=== PATIENT | female | born 1965 | race Caucasian/White ===

== ENCOUNTER 2017-08-31 08:14 | Inpatient (IN) | payer SELFPAY ==
[2017-08-31] MEDS ORDERED: IOHEXOL 350 MG/ML 10 ML VIAL (for RAD DIAG) IVCONTRAST ONE (08:15)
[2017-08-31 08:16] VITALS: BP 121/87; PULSE 80; RESP 15; TEMP 97.8; O2SAT 99
--- NOTE | 2017-08-31 08:30 | PD ---
HPI Chief Complaint: Medical Clearance Time Seen by Provider: 08:26 Travel History International Travel<30 days: No Contact w/Intl Traveler<30days: No Traveled to known affect area: No History of Present Illness HPI PATIENT STATES 2 DAYS OF SORETHROAT SO BADLY THAT SHE STARTED TAKING ASPIRIN AND TYLENOL "ABSENT MINDEDLY" (SHE HAS TAKEN 60 TYLENOL OVER LAST 2 DAYS, SHE INSISTS THAT SHE'S NOT TRYING TO HURT HERSELF) TODAY SHE WOKE UP AND HAD SOME NAUSEA AND ABDOMINAL DISCOMFORT AT [facility].....THROAT RATED 9/10, SHARP, WORSE WITH SWALLOWING PFSH Social History Tobacco Use: Yes Allergies-Medications (Allergen,Severity, Reaction): Coded Allergies: Opioids - Morphine Analogues (Verified Allergy, Unknown, TONGUE SWELLING, 08/31/17) Penicillins (Verified Allergy, Unknown, UNKNOWN - HAPPENED DURING CHILDHOOD, 08/31/17) Reported Meds & Prescriptions Reported Meds & Active Scripts Active Reported Aleve (Naproxen Sodium) 220 Mg Capsule 1 Tab PO DAILY PRN Aspirin 325 Mg Tab 325 Mg PO DAILY Tylenol Extra Strength (Acetaminophen) 500 Mg Tablet 2-3 Tab PO Q4HR PRN Review of Systems Except as stated in HPI: all other systems reviewed are Neg General / Constitutional: Positive: Fever HENT: Positive: Sore Throat Physical Exam Narrative GENERAL: SKIN: Warm and dry. HEAD: Atraumatic. Normocephalic. EYES: Pupils equal and round. No scleral icterus. No injection or drainage. ENT: No nasal bleeding or discharge. Mucous membranes pink and moist. EDEMA TO LEFT PERITONSILLAR REGION , TOLERATING OWN SECRETIONS, ANTERIOR CERVICAL LAD , NECK: Trachea midline. No JVD. CARDIOVASCULAR: Regular rate and rhythm. RESPIRATORY: No accessory muscle use. Clear to auscultation. Breath sounds equal bilaterally. GASTROINTESTINAL: Abdomen soft, non-tender, nondistended. MUSCULOSKELETAL: Extremities without clubbing, cyanosis, or edema. No obvious deformities. NEUROLOGICAL: Awake and alert. No obvious cranial nerve deficits. Motor grossly within normal limits. Five out of 5 muscle strength in the arms and legs. Normal speech. PSYCHIATRIC: Appropriate mood and affect; insight and judgment normal. Data Data Last Documented VS Vital Signs Date Time Temp Pulse Resp B/P (MAP) Pulse Ox O2 Delivery O2 Flow Rate FiO2 08/31/17 08:34 98.7 80 18 124/74 (91) 97 Orders Orders Complete Blood Count With Diff (08/31/17 08:26) Comprehensive Metabolic Panel (08/31/17 08:26) Prothrombin Time / Inr (Pt) (08/31/17 08:26) Act Partial Throm Time (Ptt) (08/31/17 08:26) Lipase (08/31/17 08:26) Thyroid Stimulating Hormone (08/31/17 08:26) Ct Abd/Pel W/O Iv Contrast (08/31/17 08:26) Drug Screen, Random Urine (08/31/17 08:26) Alcohol (Ethanol) (08/31/17 08:26) Salicylates (Aspirin) (08/31/17 08:26) Tylenol (Acetaminophen) (08/31/17 08:26) Ct Soft Tiss Neck W Iv Cont (08/31/17 ) Clindamycin Inj (Cleocin Inj) (08/31/17 10:00) Iohexol 350 Inj (Omnipaque 350 Inj) (08/31/17 08:15) Comprehensive Metabolic Panel (09/01/17 06:00) Free Thyroxine (T4) (09/01/17 06:00) Hemoglobin (Hgb) A1c (09/01/17 06:00) Magnesium (Mg) (09/01/17 06:00) Phosphorus (Po4) (09/01/17 06:00) Thyroid Stimulating Hormone (09/01/17 06:00) Complete Blood Count With Diff (09/01/17 06:00) Dexamethasone Inj (Decadron Inj) (08/31/17 12:00) Admit Order (Ed Use Only) (08/31/17 11:58) Consult Ent (08/31/17 ) Labs Laboratory Tests Test 08/31/17 08:45 08/31/17 09:15 White Blood Count 12.2 TH/MM3 Red Blood Count 4.40 MIL/MM3 Hemoglobin 13.6 GM/DL Hematocrit 39.8 % Mean Corpuscular Volume 90.5 FL Mean Corpuscular Hemoglobin 30.9 PG Mean Corpuscular Hemoglobin Concent 34.1 % Red Cell Distribution Width 12.8 % Platelet Count 162 TH/MM3 Mean Platelet Volume 10.0 FL Neutrophils (%) (Auto) 74.9 % Lymphocytes (%) (Auto) 14.0 % Monocytes (%) (Auto) 8.5 % Eosinophils (%) (Auto) 1.8 % Basophils (%) (Auto) 0.8 % Neutrophils # (Auto) 9.1 TH/MM3 Lymphocytes # (Auto) 1.7 TH/MM3 Monocytes # (Auto) 1.0 TH/MM3 Eosinophils # (Auto) 0.2 TH/MM3 Basophils # (Auto) 0.1 TH/MM3 CBC Comment DIFF FINAL Differential Comment Prothrombin Time 10.8 SEC Prothromb Time International Ratio 1.0 RATIO Activated Partial Thromboplast Time 30.6 SEC Blood Urea Nitrogen 10 MG/DL Creatinine 0.49 MG/DL Random Glucose 103 MG/DL Total Protein 7.4 GM/DL Albumin 3.3 GM/DL Calcium Level 9.2 MG/DL Alkaline Phosphatase 82 U/L Aspartate Amino Transf (AST/SGOT) 26 U/L Alanine Aminotransferase (ALT/SGPT) 26 U/L Total Bilirubin 1.1 MG/DL Sodium Level 135 MEQ/L Potassium Level 4.5 MEQ/L Chloride Level 104 MEQ/L Carbon Dioxide Level 24.2 MEQ/L Anion Gap 7 MEQ/L Estimat Glomerular Filtration Rate 132 ML/MIN Lipase 188 U/L Thyroid Stimulating Hormone 3rd Gen 0.592 uIU/ML Salicylates Level LESS THAN 1.7 MG/DL Acetaminophen Level 20.4 MCG/ML Ethyl Alcohol Level LESS THAN 3 MG/DL Urine Opiates Screen NEG Urine Barbiturates Screen NEG Urine Amphetamines Screen POS Urine Benzodiazepines Screen NEG Urine Cocaine Screen NEG Urine Cannabinoids Screen POS MDM Medical Decision Making Medical Screen Exam Complete: Yes Emergency Medical Condition: Yes Medical Record Reviewed: Yes Differential Diagnosis PERITONSILLAR ABSCESS V ELECTROLYTE ABNL V SALICYLATE V TYLENOL OVERDOSE Narrative Course tylenol level elevated but nontoxic, however should have serial tylenol's to ensure that no toxicity levels are reach. ct neck showed peritonsillar swelling abscess vs mass per radiologiy, will admit for further evaluation. ent already consulted and patient was treated with steroids and iv abx samuel during initial evaluation Diagnosis Primary Impression: peritonsillar edema (abscess vs malignancy) Additional Impression: unintentional tylenol ingestion Scripts Lactobacillus Acidophilus (Lactobacillus Acidophilus) 1 Pkt 1 PKT PO TID for Nutritional Supplement, #36 PKT 0 Refills Prov: Tomas Graham MD 10/3/17 Clindamycin (Clindamycin) 300 Mg Cap 600 MG PO Q8H for Infection, #35 CAP 0 Refills Prov: Tomas Graham MD 09/02/17 Prednisone (21) 10 mg tab Dose Pack (Prednisone (21) 10 mg tab Dose Pack) 10 Mg Pack 10 MG PO DIRECTED for Inflammation, #1 DSPK 0 Refills Prov: Tomas Graham MD 09/02/17 Marky Messer MD Aug 31, 2017 08:30
[2017-08-31 08:34] VITALS: BP 124/74; PULSE 20; PULSE 80; RESP 18; TEMP 98.7; O2SAT 97
[2017-08-31] MEDS ORDERED: ASPI325T PO (08:42)
[2017-08-31] MEDS ORDERED: ACET-822 PO (08:42)
[2017-08-31] MEDS ORDERED: NAPR220C22 PO (08:43)
[2017-08-31 09:00] LABS: AUTOMATED NEUTROPHIL # 9.1 TH/MM3 (1.8-7.7); BASOPHIL # 0.1 TH/MM3 (0-0.2); BASOPHIL % 0.8 % (0.0-2.0); EOSINOPHIL # 0.2 TH/MM3 (0-0.4); EOSINOPHIL % 1.8 % (0.0-4.0); HEMATOCRIT 39.8 % (35.0-46.0); HEMO FLAGS DIFF FINAL; LYMPHOCYTE # 1.7 TH/MM3 (1.0-4.8); MEAN CELL VOLUME 90.5 FL (80.0-100.0); MEAN CORPUSCULAR HEMOGLOBIN 30.9 PG (27.0-34.0); MEAN CORPUSCULAR HGB CONC 34.1 % (32.0-36.0); MONO % 8.5 % (0.0-8.0); NEUT % 74.9 % (16.0-70.0); PLATELET COUNT 162 TH/MM3 (150-450); RED CELL DISTRIBUTION WIDTH 12.8 % (11.6-17.2); WHITE BLOOD COUNT 12.2 TH/MM3 (4.0-11.0)
[2017-08-31 09:10] LABS: PROTHROMBIN TIME - PATIENT 10.8 SEC (9.8-11.6)
[2017-08-31 09:11] LABS: APTT (PATIENT) 30.6 SEC (24.3-30.1)
[2017-08-31 09:19] LABS: ANION GAP 7 MEQ/L (5-15); AST (GOT) 26 U/L (15-37); BICARBONATE 24.2 MEQ/L (21.0-32.0); BLOOD UREA NITROGEN 10 MG/DL (7-18); CHLORIDE 104 MEQ/L (98-107); GLOMERULAR FILTRATION RATE 132 ML/MIN (>89); POTASSIUM 4.5 MEQ/L (3.5-5.1); SODIUM (NA) 135 MEQ/L (136-145)
[2017-08-31 09:28] LABS: ACETAMINOPHEN 20.4 MCG/ML (10.0-30.0); ALKALINE PHOSPHATASE 82 U/L (45-117); ALT (GPT) 26 U/L (10-53); TOTAL BILIRUBIN ADULT 1.1 MG/DL (0.2-1.0)
[2017-08-31 09:32] LABS: ALCOHOL LESS THAN 3 MG/DL (0-5)
--- NOTE | 2017-08-31 09:38 | RADRPT ---
EXAM DATE/TIME: 08/31/2017 08:44 [facility] COMPARISON: No previous studies available for comparison. INDICATIONS : Upper abdomen pain and vomiting today. ORAL CONTRAST: No oral contrast ingested. RADIATION DOSE: 9.96 CTDIvol (mGy) MEDICAL HISTORY : None SURGICAL HISTORY : None. ENCOUNTER: Initial ACUITY: 1 day PAIN SCALE: 3/10 LOCATION: Bilateral upper quadrant TECHNIQUE: Volumetric scanning of the abdomen and pelvis was performed. Using automated exposure control and adjustment of the mA and/or kV according to patient size, radiation dose was kept as low as reasonably achievable to obtain optimal diagnostic quality images. DICOM format image data is av ailable electronically for review and comparison. FINDINGS: LOWER LUNGS: The visualized lower lungs are clear. LIVER: Homogeneous density without lesion. There is no dilation of the biliary tree. The gallbla dder is greatly distended and there is layering high density material identified within the dependent portion of the gallbladder. SPLEEN: Normal size without lesion. PANCREAS: Within normal limits. KIDNEYS: Normal in size and shape. There is no mass, stone, or hydronephrosis. ADRENAL GLANDS: Within normal limits. VASCULAR: Scattered atherosclerosis. No evidence of aneurysm. BOWEL/MESENTERY: The stomach, small bowel, and colon demonstrate no acute abnormality. There is no free intraperitoneal air or fluid. ABDOMINAL WALL: Within normal limits. RETROPERITONEUM: There is no lymphadenopathy. BLADDER: No wall thickening or mass. REPRODUCTIVE: Multiple calcifications identified within the myometrium which appears diffusely no dular consistent with multiple calcified uterine fibroids. INGUINAL: There is no lymphadenopathy or hernia. MUSCULOSKELETAL: Within normal limits for patient age. CONCLUSION: #1. The gallbladder is greatly distended and there is layering high density material identified withi n the dependent portion of the gallbladder. Recommend further evaluation with right upper quadrant ul trasound for possible acute cholecystitis. #2. No evidence of bowel obstruction or inflammatory process within the abdomen and pelvis. #3. Multiple calcified uterine fibroids. Yesy Read MD on August 31, 2017 at 9:34 Board Certified Radiologist. This report was verified electronically.
[2017-08-31] MEDS ORDERED: CLINDAMYCIN INJ 900 MG in SODIUM CHLORIDE 0.9% INJ 100 ML IV ONE (10:00)
--- NOTE | 2017-08-31 10:22 | RADRPT ---
EXAM DATE/TIME: 08/31/2017 09:49 [facility] COMPARISON: No previous studies available for comparison. INDICATIONS : Peritonsillar abscess left. IV CONTRAST: 75 cc Omnipaque 350 (iohexol) IV RADIATION DOSE: 13.44 CTDIvol (mGy) MEDICAL HISTORY : adrenal cancer SURGICAL HISTORY : right jaw and cheek surgery ENCOUNTER: Initial ACUITY: 1 day PAIN SCALE: 5/10 LOCATION: Left neck TECHNIQUE: Volumetric scanning of the neck was performed. Using automated exposure control and adjustment of th e mA and/or kV according to patient size, radiation dose was kept as low as reasonably achievable to obtain optimal diagnostic quality images. DICOM format image data is available electronically for r eview and comparison. FINDINGS: NASOPHARYNX: The nasopharyngeal airway has a normal configuration. No mucosal thickening or mass is seen. OROPHARYNX: There is asymmetry of the tonsillar pillars with significant enlargement of the left tonsil measuring approximately 3.2 x 3.2 x 8 cm craniocaudally. There is a central low attenuation with a thin rim of enhancement seen on series 2 image 47 measuring 1.3 x 1.8 cm. The right tonsil and base of the tongu e appear normal. No evidence of adjacent adenopathy. LARYNX: The supraglottic, glottic, and infraglottic structures are intact. PARAPHARYNGEAL: The parapharyngeal space is intact. SALIVARY GLANDS: The parotid and submandibular glands are intact. LYMPH NODES: No enlarged or necrotic-appearing nodes. THYROID: Homogeneous enhancement without evidence of nodule. BONES: Right-sided facet degenerative changes. CONCLUSION: Abnormal enlargement of the left peritonsillar soft tissues with appears to extend over 8 cm segment with a focal central area of decreased attenuation with thin rim of enhancement. This may represent s ignificant tonsillar hypertrophy with central access, however, given the overall size of the lesion t here is concern for possible neoplasm. Recommend followup imaging after treatment to evaluate for res olution.. Yesy Read MD on August 31, 2017 at 10:16 Board Certified Radiologist. This report was verified electronically.
[2017-08-31] MEDS ORDERED: DEXAMETHASONE SOD PHOS 20 MG/5 ML VIAL IV PUSH ONE (12:00)
[2017-08-31] MEDS ORDERED: HALOPERIDOL LACTATE 5 MG/ML AMP IM PRN (12:45)
[2017-08-31] MEDS ORDERED: BISACODYL 10 MG SUPP RECTAL PRN (12:45)
[2017-08-31] MEDS ORDERED: PROCHLORPERAZINE 25 MG SUPP RECTAL PRN (12:45)
[2017-08-31] MEDS ORDERED: LORazepam 2 MG TAB PO PRN (12:45)
[2017-08-31] MEDS ORDERED: NICOTINE 14 MG/24 HR PATCH T-DERMAL ONE (12:45)
[2017-08-31] MEDS ORDERED: LACTULOSE SYRUP 20 GM/30 ML CUP PO PRN (12:45)
[2017-08-31] MEDS ORDERED: MAGNESIUM HYDROXIDE SUSP 30 ML CUP PO PRN (12:45)
[2017-08-31] MEDS ORDERED: oxyCODONE/ACETAMINOPHEN 10 MG/325 MG TAB PO PRN (12:45)
[2017-08-31] MEDS ORDERED: TEMAZEPAM 15 MG CAP PO PRN (12:45)
[2017-08-31] MEDS ORDERED: LORazepam 1 MG TAB PO PRN (12:45)
[2017-08-31] MEDS ORDERED: ONDANSETRON HCL 4 MG/2 ML VIAL IVP PRN (12:45)
[2017-08-31] MEDS ORDERED: ACETAMINOPHEN 325 MG TAB PO PRN ×2 (12:45)
[2017-08-31] MEDS ORDERED: SODIUM CHLORIDE 0.9% FLUSH 10 ML FLUSH IV FLUSH PRN (12:45)
[2017-08-31] MEDS ORDERED: FLUMAZENIL 0.5 MG/5 ML VIAL IV PUSH PRN (12:45)
[2017-08-31] MEDS ORDERED: HYDROmorphone HCL PF 1 MG/ML VIAL IV PUSH PRN ×2 (12:45)
[2017-08-31] MEDS ORDERED: SENNOSIDES 8.6 MG TAB PO PRN (12:45)
[2017-08-31] MEDS ORDERED: NALOXONE HCL 0.4 MG/ML AMP IV PUSH PRN (12:45)
[2017-08-31] MEDS ORDERED: LORazepam 2 MG/ML VIAL IV PUSH PRN ×4 (12:45)
--- NOTE | 2017-08-31 12:59 | HHI.HP ---
[facility] Service [facility] Primary Care Physician Unknown Admission Diagnosis PERITONSILLAR CELLULITIS V MALIGNANCY Diagnoses: (1) Tobacco abuse Diagnosis: Secondary (2) Methamphetamine abuse Diagnosis: Secondary (3) Marijuana abuse Diagnosis: Secondary (4) IVDU (intravenous drug user) Diagnosis: Secondary (5) Tonsillar abscess Diagnosis: Principal Chief Complaint: sore throat Travel History International Travel<30 Days: No Contact w/Intl Traveler <30 Da: No Traveled to Known Affected Are: No History of Present Illness PATIENT STATES 2 DAYS OF SORE THROAT SO BADLY THAT SHE STARTED TAKING ASPIRIN AND TYLENOL "ABSENT MINDEDLY" (SHE HAS TAKEN 60 TYLENOL OVER LAST 2 DAYS, SHE INSISTS THAT SHE'S NOT TRYING TO HURT HERSELF) TODAY SHE WOKE UP AND HAD SOME NAUSEA AND ABDOMINAL DISCOMFORT AT EPIGASTRIC REGION.....THROAT RATED 9/10, SHARP, WORSE WITH SWALLOWING SEEN IN THE ER STARTED ON STEROIDS AND ANTIBIOTICS, ENT CONSULTED WILL GIVE CLEAR LIQUID DIET AND PAIN CONTROL Review of Systems Constitutional: DENIES: Diaphoretic episodes, Fatigue, Fever, Weight gain, Weight loss, Chills, Dizziness, Change in appetite Endocrine: DENIES: Abnorml menstrual pattern, Heat/cold intolerance, Polydipsia Eyes: DENIES: Blurred vision, Diplopia, Eye inflammation, Eye pain, Vision loss Ears, nose, mouth, throat: COMPLAINS OF: Throat pain, Hoarseness, DENIES: Tinnitus, Hearing loss, Vertigo, Nasal discharge, Oral lesions Respiratory: DENIES: Apneas, Cough, Snoring, Wheezing Cardiovascular: DENIES: Chest pain, Palpitations, Syncope, Dyspnea on Exertion , PND Gastrointestinal: COMPLAINS OF: Abdominal pain, DENIES: Black stools, Bloody stools, Constipation, Diarrhea Genitourinary: DENIES: Abnormal vaginal bleeding, Dysmenorrhea Musculoskeletal: DENIES: Joint pain, Muscle aches, Stiffness Integumentary: DENIES: Abnormal pigmentation, Pruritus, Rash Hematologic/lymphatic: DENIES: Bruising, Lymphadenopathy Immunologic/allergic: DENIES: Eczema, Urticaria Neurologic: DENIES: Abnormal gait, Headache, Localized weakness, Paresthesias, Seizures Psychiatric: DENIES: Anxiety, Confusion, Mood changes, Depression, Hallucinations, Agitation Past Family Social History Past Medical History ADRENAL CANCER WITH RADIATION TOBACCO IVDU METHAMPHETAMINE USE ALCOHOL MARIJUANA USE RIGHT JAW SURGERY Past Surgical History RIGHT JAW AND RIGHT CHEEK SURGERY Reported Medications Reported Meds & Active Scripts Active Reported Aleve (Naproxen Sodium) 220 Mg Capsule 1 Tab PO DAILY PRN Aspirin 325 Mg Tab 325 Mg PO DAILY Tylenol Extra Strength (Acetaminophen) 500 Mg Tablet 2-3 Tab PO Q4HR PRN Allergies: Coded Allergies: Opioids - Morphine Analogues (Verified Allergy, Unknown, TONGUE SWELLING, 08/31/17) Penicillins (Verified Allergy, Unknown, UNKNOWN - HAPPENED DURING CHILDHOOD, 08/31/17) Active Ordered Medications Current Medications Clindamycin Phosphate 900 mg/ Sodium Chloride 106 ml @ 212 mls/hr ONCE ONCE IV Last administered on 08/31/17t 11:17; Start 08/31/17 at 10:00; Stop at 10:29; Status DC Iohexol (Omnipaque 350 Inj) 75 ml STK-MED ONCE IVCONTRAST Last administered on 08/31/17 08:15; Start 08/31/17 at 08:15; Stop 08/31/17 at 09:55; Status DC Dexamethasone Sodium Phosphate (Decadron Inj) 10 mg ONCE ONCE IV PUSH ; Start 08/31/17 at 12:00; Stop 08/31/17 at 12:01; Status DC Ceftriaxone Sodium 1000 mg/ Sodium Chloride 100 ml @ 200 mls/hr Q12H IV ; Start 08/31/17 at 12:45; Status UNV Clindamycin Phosphate 900 mg/ Sodium Chloride 106 ml @ 212 mls/hr Q8H IV ; Start 08/31/17 at 12:45; Status UNV Dexamethasone Sodium Phosphate (Decadron Inj) 4 mg Q6HR IV PUSH ; Start at 18:00; Status UNV Sodium Chloride 1,000 ml @ 100 mls/hr Q10H IV ; Start 08/31/17 at 12:37; Status UNV Sodium Chloride (NS Flush) 2 ml UNSCH PRN IV FLUSH FLUSH AFTER USING IV ACCESS ; Start 08/31/17 at 12:45; Status UNV Sodium Chloride (NS Flush) 2 ml BID IV FLUSH ; Start 08/31/17 at 21:00; Status UNV Acetaminophen (Tylenol) 650 mg Q4H PRN PO TEMP > 100.4; Start 08/31/17 at 12:45 ; Status UNV Ondansetron HCl (Zofran Inj) 4 mg Q6H PRN IVP NAUSEA OR VOMITING; Start at 12:45; Status UNV Prochlorperazine (Compazine Supp) 25 mg Q12H PRN UT NAUSEA OR VOMITING; Start 08/31/17 at 12:45; Status UNV Temazepam (Restoril) 15 mg HS PRN PO INSOMNIA; Start 08/31/17 at 12:45; Status UNV Acetaminophen (Tylenol) 650 mg Q6H PRN PO PAIN SCALE 1 TO 2; Start 08/31/17 at 12:45; Status UNV Oxycodone/ Acetaminophen (Percocet 5-325 Mg) 1 tab Q6H PRN PO PAIN SCALE 3 TO 5; Start 08/31/17 at 12:45; Status UNV Oxycodone/ Acetaminophen (Percocet 10-325 Mg) 1 tab Q6H PRN PO PAIN SCALE 6 TO 10; Start 08/31/17 at 12:45; Status UNV Hydromorphone HCl (Dilaudid Pf Inj) 0.5 mg Q3H PRN IV PUSH Pain 3-5; if unable to take PO; Start 08/31/17 at 12:45; Status UNV Hydromorphone HCl (Dilaudid Pf Inj) 1 mg Q3H PRN IV PUSH Pain 6-10;if unable to take PO; Start 08/31/17 at 12:45; Status UNV Naloxone HCl (Narcan Inj) 0.4 mg UNSCH PRN IV PUSH SEE LABEL COMMENTS; Start 08/31/17 at 12:45; Status UNV Senna/Docusate Sodium (Ava-Colace) 1 tab BID PO ; Start 08/31/17 at 21:00; Status UNV Magnesium Hydroxide (Milk Of Magnesia Liq) 30 ml Q12H PRN PO MILD - MODERATE CONSTIPATION; Start 08/31/17 at 12:45; Status UNV Sennosides (Senokot) 17.2 mg Q12H PRN PO MODERATE - SEVERE CONSTIPATION; Start 08/31/17 at 12:45; Status UNV Bisacodyl (Dulcolax Supp) 10 mg DAILY PRN RECTAL SEVERE CONSITIPATION; Start 08/31/17 at 12:45; Status UNV Lactulose (Lactulose Liq) 30 ml DAILY PRN PO SEVERE CONSITIPATION; Start at 12:45; Status UNV Flumazenil (Romazicon Inj) 0.2 mg Q1M PRN IV PUSH SEE LABEL COMMENTS; Start at 12:45; Status UNV Lorazepam (Ativan) 1 mg Q4H PRN PO CIWA 8 - 10; Start 08/31/17 at 12:45; Status UNV Lorazepam (Ativan Inj) 1 mg Q4H PRN IV PUSH CIWA 8 - 10; Start 08/31/17 at 12: 45; Status UNV Lorazepam (Ativan) 2 mg Q2H PRN PO CIWA 11-14; Start 08/31/17 at 12:45; Status UNV Lorazepam (Ativan Inj) 2 mg Q2H PRN IV PUSH CIWA 11-14; Start 08/31/17 at 12:45 ; Status UNV Lorazepam (Ativan Inj) 2 mg Q1H PRN IV PUSH CIWA 15-20; Start 08/31/17 at 12:45 ; Status UNV Lorazepam (Ativan Inj) 2 mg Q15M PRN IV PUSH CIWA > 20; Start 08/31/17 at 12:45 ; Status UNV Haloperidol Lactate (Haldol Inj) 2 mg Q15M PRN IM SEE LABEL COMMENTS; Start at 12:45; Status UNV Pantoprazole Sodium (Protonix) 40 mg Q12HR PO ; Start 08/31/17 at 21:00; Status UNV Nicotine (Habitrol 14 Mg Patch.24 Hr) 1 patch ONCE ONCE T-DERMAL ; Start at 12:45; Stop 08/31/17 at 12:46; Status UNV Nicotine (Habitrol 14 Mg Patch.24 Hr) 1 patch DAILY T-DERMAL ; Start 08/31/17 at 12:45; Status UNV Miscellaneous Information 1 DAILY T-DERMAL ; Start 09/01/17 at 09:00; Status UNV Multivitamins (Theragran) 1 tab DAILY PO ; Start 09/01/17 at 09:00; Status UNV Multivitamins (Theragran) 1 tab ONCE ONCE PO ; Start 08/31/17 at 12:45; Stop 08/31/17 at 12:46; Status UNV Thiamine HCl (Vitamin B1) 100 mg ONCE ONCE PO ; Start 08/31/17 at 12:45; Stop 08/31/17 at 12:46; Status UNV Thiamine HCl (Vitamin B1) 100 mg DAILY PO ; Start 09/01/17 at 09:00; Status UNV Folic Acid (Folate) 1 mg ONCE ONCE PO ; Start 08/31/17 at 12:45; Stop 08/31/17 at 12:46; Status UNV Folic Acid (Folate) 1 mg DAILY PO ; Start 09/01/17 at 09:00; Status UNV Family History TOBACCO ABUSE Social History TOBACCO ALCOHOL ABUSE IVDU THC METHAMPHETAMINES Physical Exam Vital Signs Vital Signs Date Time Temp Pulse Resp B/P (MAP) Pulse Ox O2 Delivery O2 Flow Rate FiO2 08/31/17 08:34 98.7 80 18 124/74 (91) 97 08/31/17 08:16 97.8 80 15 121/87 (98) 99 Physical Exam GENERAL: This is a well-nourished, well-developed patient, in no apparent distress. SKIN: No rashes, ecchymoses or lesions. Cool and dry. HEAD: Atraumatic. Normocephalic. No temporal or scalp tenderness. EYES: Pupils equal round and reactive. Extraocular motions intact. No scleral icterus. No injection or drainage. ENT: Nose without bleeding, purulent drainage or septal hematoma. EDEMA TO LEFT PERITONSILLAR REGION , TOLERATING OWN SECRETIONS, ANTERIOR CERVICAL LAD, Uvula midline. Airway patent. POOR DENTITION NECK: Trachea midline. No JVD or lymphadenopathy. Supple, nontender, no meningeal signs. CARDIOVASCULAR: Regular rate and rhythm without murmurs, gallops, or rubs. RESPIRATORY: Clear to auscultation. Breath sounds equal bilaterally. No wheezes , rales, or rhonchi. GASTROINTESTINAL: Abdomen soft, non-tender, nondistended. No hepato-splenomegaly , or palpable masses. No guarding. MUSCULOSKELETAL: Extremities without clubbing, cyanosis, or edema. No joint tenderness, effusion, or edema noted. No calf tenderness. Negative Homans sign bilaterally. NEUROLOGICAL: Awake and alert. Cranial nerves II through XII intact. Motor and sensory grossly within normal limits. Five out of 5 muscle strength in all muscle groups. Normal speech. INSIGHT AND JUDGEMENT ARE NORMAL MOOD AND BEHAVIOR ARE APPROPRIATE Laboratory Laboratory Tests Test 08/31/17 08:45 08/31/17 09:15 White Blood Count 12.2 Red Blood Count 4.40 Hemoglobin 13.6 Hematocrit 39.8 Mean Corpuscular Volume 90.5 Mean Corpuscular Hemoglobin 30.9 Mean Corpuscular Hemoglobin Concent 34.1 Red Cell Distribution Width 12.8 Platelet Count 162 Mean Platelet Volume 10.0 Neutrophils (%) (Auto) 74.9 Lymphocytes (%) (Auto) 14.0 Monocytes (%) (Auto) 8.5 Eosinophils (%) (Auto) 1.8 Basophils (%) (Auto) 0.8 Neutrophils # (Auto) 9.1 Lymphocytes # (Auto) 1.7 Monocytes # (Auto) 1.0 Eosinophils # (Auto) 0.2 Basophils # (Auto) 0.1 CBC Comment DIFF FINAL Differential Comment Prothrombin Time 10.8 Prothromb Time International Ratio 1.0 Activated Partial Thromboplast Time 30.6 Blood Urea Nitrogen 10 Creatinine 0.49 Random Glucose 103 Total Protein 7.4 Albumin 3.3 Calcium Level 9.2 Alkaline Phosphatase 82 Aspartate Amino Transf (AST/SGOT) 26 Alanine Aminotransferase (ALT/SGPT) 26 Total Bilirubin 1.1 Sodium Level 135 Potassium Level 4.5 Chloride Level 104 Carbon Dioxide Level 24.2 Anion Gap 7 Estimat Glomerular Filtration Rate 132 Lipase 188 Thyroid Stimulating Hormone 3rd Gen 0.592 Salicylates Level LESS THAN 1.7 Acetaminophen Level 20.4 Ethyl Alcohol Level LESS THAN 3 Urine Opiates Screen NEG Urine Barbiturates Screen NEG Urine Amphetamines Screen POS Urine Benzodiazepines Screen NEG Urine Cocaine Screen NEG Urine Cannabinoids Screen POS Result Diagram: 08/31/1784408/31/17844 Caprini VTE Risk Assessment Caprini VTE Risk Assessment: Mod/High Risk (score >= 2) Caprini Risk Assessment Model Point Value = 1 Point Value = 2 Point Value = 3 Point Value = 5 Age 41-60 Minor surgery BMI > 25 kg/m2 Swollen legs Varicose veins or History of unexplained or recurrent spontaneous Oral contraceptives or hormone replacement Sepsis (< 1 month) Serious lung disease, including pneumonia (< 1 month) Abnormal pulmonary function Acute myocardial infarction Congestive heart failure (< 1 month) History of inflammatory bowel disease Medical patient at bed rest Age 61-74 Arthroscopic surgery Major open surgery (> 45 min) Laparoscopic surgery (> 45 min) Malignancy Confined to bed (> 72 hours) Immobilizing plaster cast Central venous access Age >= 75 History of VTE Family history of VTE Factor V Leiden Prothrombin [id number] Lupus anticoagulant Anticardiolipin antibodies Elevated serum homocysteine Heparin-induced thrombocytopenia Other congenital or acquired thrombophilia Stroke (< 1 month) Elective arthroplasty Hip, pelvis, or leg fracture Acute spinal cord injury (< 1 month) Prophylaxis Regimen Total Risk Factor Score Risk Level Prophylaxis Regimen 0-1 Low Early ambulation 2 Moderate Order ONE of the following: *Sequential Compression Device (SCD) *Heparin 5000 units SQ BID 3-4 Higher Order ONE of the following medications: *Heparin 5000 units SQ TID *Enoxaparin/Lovenox 40 mg SQ daily (WT < 150 kg, CrCl > 30 mL/min) *Enoxaparin/Lovenox 30 mg SQ daily (WT < 150 kg, CrCl > 10-29 mL/min) *Enoxaparin/Lovenox 30 mg SQ BID (WT < 150 kg, CrCl > 30 mL/min) AND/OR *Sequential Compression Device (SCD) 5 or more Highest Order ONE of the following medications: *Heparin 5000 units SQ TID (Preferred with Epidurals) *Enoxaparin/Lovenox 40 mg SQ daily (WT < 150 kg, CrCl > 30 mL/min) *Enoxaparin/Lovenox 30 mg SQ daily (WT < 150 kg, CrCl > 10-29 mL/min) *Enoxaparin/Lovenox 30 mg SQ BID (WT < 150 kg, CrCl > 30 mL/min) AND *Sequential Compression Device (SCD) Assessment and Plan Problem List: (1) Peritonsillar abscess ICD Code: J36 - Peritonsillar abscess (2) IVDU (intravenous drug user) ICD Code: F19.90 - Other psychoactive substance use, unspecified, uncomplicated (3) Tonsillar abscess ICD Code: J36 - Peritonsillar abscess (4) Methamphetamine abuse ICD Code: F15.10 - Other stimulant abuse, uncomplicated (5) Tobacco abuse ICD Code: Z72.0 - Tobacco use (6) Marijuana abuse ICD Code: F12.10 - Cannabis abuse, uncomplicated Assessment and Plan PERITONSILLAR ABSCESS VS MASS- CONTINUE ON CLINDAMYCIN, AND ROCEPHIN AND DECADRON, TYLENOL OVERUSE- CHECK TYLENOL LEVEL LATER TODAY IF STABLE THEN JUST CHECK IN AM ASPIRIN OVERUSE check salicylate level that was normal Leukocytosis possibly due to abscess versus steroids. Tobacco abuse NicoDerm patch recommend cessation Alcohol abuse recommend cessation CIWA protocol Methamphetamine abuse recommend cessation Cocaine abuse recommend cessation Marijuana abuse recommend cessation History of right jaw surgery consult ENT recommendations as above History of IV drug abuse recommend cessation Continue on DVT and GI prophylaxis History of adrenal carcinoma with treatment with radiation Malignant medical noncompliance Code Status FULL CODE Discussed Condition With ER AND PT AND RN Physician Certification 2 Midnight Certification Type: Admission for Inpatient Services Order for Inpatient Services The services are ordered in accordance with Medicare regulations or non- Medicare payer requirements, as applicable. In the case of services not specified as inpatient-only, they are appropriately provided as inpatient services in accordance with the 2-midnight benchmark. Estimated LOS (days): 3 3 days is the estimated time the patient will need to remain in the hospital, assuming treatment plan goals are met and no additional complications. Post-Hospital Plan: Not yet determined Fili Zimmer DO Aug 31, 2017 12:59
--- NOTE | 2017-08-31 13:21 | RADRPT ---
EXAM DATE/TIME: 08/31/2017 13:01 [facility] COMPARISON: No previous studies available for comparison. INDICATIONS : Cough MEDICAL HISTORY : None. SURGICAL HISTORY : None. ENCOUNTER: Initial ACUITY: 3 days PAIN SCORE: 10/10 LOCATION: chest FINDINGS: A single view of the chest demonstrates the lungs to be symmetrically aerated without evidence of mas s, infiltrate or effusion. The cardiomediastinal contours are unremarkable. Osseous structures are intact. CONCLUSION: Normal examination. Neal Snyder MD on August 31, 2017 at 13:20 Board Certified Radiologist. This report was verified electronically.
[2017-08-31 13:30] VITALS: BP 123/75; PULSE 71; RESP 18; TEMP 97.8; O2SAT 96
[2017-08-31] MEDS ORDERED: FOLIC ACID 1 MG TAB PO ONE (13:30)
[2017-08-31] MEDS ORDERED: THIAMINE HCL 100 MG TAB PO ONE (13:30)
[2017-08-31] MEDS ORDERED: MULTIVITAMIN TAB PO ONE (13:30)
[2017-08-31] MEDS: cefTRIAXone INJ 1,000 MG in SODIUM CHLORIDE 0.9% INJ 100 ML IV SCH (13:44)
[2017-08-31] MEDS: SODIUM CHLOR 0.9% 1000 ML INJ 1,000 ML IV SCH ×2 (13:45→23:10)
[2017-08-31] MEDS: NICOTINE 14 MG/24 HR PATCH T-DERMAL SCH (13:54)
[2017-08-31] MEDS: CLINDAMYCIN INJ 900 MG in SODIUM CHLORIDE 0.9% INJ 100 ML IV SCH (18:06)
[2017-08-31] MEDS: DEXAMETHASONE SOD PHOS 4 MG/ML VIAL IV PUSH SCH ×2 (18:06→23:07)
[2017-08-31] MEDS: oxyCODONE/ACETAMINOPHEN 5 MG/325 MG TAB PO PRN (18:07)
[2017-08-31 19:45] LABS: BLOOD, URINE NEG (NEG); COMMENT (UR) CULT NOT INDICATED; CULTURE IF INDICATED CULT NOT INDICATED; GLUCOSE,URINE NEG (NEG); KETONE, URINE NEG (NEG); MUCUS URINE FEW /lpf (OCC); NITRITE,URINE NEG (NEG); SQUAMOUS EPITHELIAL CELL URINE <1 /hpf (0-5); URINE COLOR YELLOW (YELLW/STRAW)
[2017-08-31] MEDS: SODIUM CHLORIDE 0.9% FLUSH 10 ML FLUSH IV FLUSH SCH (19:50)
[2017-08-31] MEDS: DOCUSATE SODIUM 50 MG/SENNA 8.6 MG TAB PO SCH (19:52)
[2017-08-31] MEDS: PANTOPRAZOLE SOD 40 MG DELAYED RELEASE TAB PO SCH (19:52)
[2017-08-31 20:00] VITALS: PULSE 68
[2017-08-31 20:25] VITALS: BP 108/68; PULSE 71; RESP 18; TEMP 97.1; O2SAT 96
[2017-09-01] VITALS (13 sets, daily range): BP systolic 106–133; BP diastolic 67–78; PULSE 50–89; RESP 16–20; TEMP 96–97.8; O2SAT 91–97
[2017-09-01] MEDS: CLINDAMYCIN INJ 900 MG in SODIUM CHLORIDE 0.9% INJ 100 ML IV SCH ×3 (01:00→18:19)
[2017-09-01] MEDS: oxyCODONE/ACETAMINOPHEN 5 MG/325 MG TAB PO PRN ×2 (01:00→16:11)
[2017-09-01] MEDS: cefTRIAXone INJ 1,000 MG in SODIUM CHLORIDE 0.9% INJ 100 ML IV SCH ×2 (02:24→13:40)
[2017-09-01] MEDS: DEXAMETHASONE SOD PHOS 4 MG/ML VIAL IV PUSH SCH ×3 (05:30→18:19)
[2017-09-01] MEDS: MULTIVITAMIN TAB PO SCH (08:24)
[2017-09-01] MEDS: PANTOPRAZOLE SOD 40 MG DELAYED RELEASE TAB PO SCH ×2 (08:24→20:05)
[2017-09-01] MEDS: FOLIC ACID 1 MG TAB PO SCH (08:24)
[2017-09-01] MEDS: THIAMINE HCL 100 MG TAB PO SCH (08:24)
[2017-09-01] MEDS: NICOTINE 14 MG/24 HR PATCH T-DERMAL SCH (08:25)
[2017-09-01] MEDS: REMOVE OLD PATCH T-DERMAL SCH (08:25)
[2017-09-01] MEDS: SODIUM CHLORIDE 0.9% FLUSH 10 ML FLUSH IV FLUSH SCH ×2 (08:26→20:05)
[2017-09-01] MEDS: DOCUSATE SODIUM 50 MG/SENNA 8.6 MG TAB PO SCH ×2 (08:26→20:05)
--- NOTE | 2017-09-01 09:03 | HHI.PR ---
Subjective Remarks Follow-up peritonsillar swelling. Patient states that she feels much better today. No trouble swallowing. Denies dyspnea. Sore throat has improved significantly. Objective Vitals Vital Signs Date Time Temp Pulse Resp B/P (MAP) Pulse Ox O2 Delivery O2 Flow Rate FiO2 09/01/17 08:49 61 09/01/17 04:25 96.7 71 17 108/67 (81) 97 09/01/17 04:00 61 09/01/17 00:25 97.2 89 17 106/71 (83) 96 09/01/17 00:00 85 08/31/17 20:25 97.1 71 18 108/68 (81) 96 08/31/17 20:00 68 08/31/17 13:30 97.8 71 18 123/75 (91) 96 08/31/17 13:06 I/O 08/31/17 08/31/17 08/31/17 09/01/17 09/01/17 09/01/17 07:00 15:00 23:00 07:00 15:00 23:00 Intake Total 200 ml Balance 200 ml Intake IV Total 200 ml # Voids 3 Result Diagram: 08/31/17 0845 08/31/17 0845 Imaging Last Impressions Chest X-Ray 08/31/17 1237 Signed Impressions: Service Date/Time: Thursday, August 31, 2017 13:01 - CONCLUSION: Normal examination. Neal Snyder MD Abdomen/Pelvis CT 08/31/17 0826 Signed Impressions: Service Date/Time: Thursday, August 31, 2017 08:44 - CONCLUSION: #1. The gallbladder is greatly distended and there is layering high density material identified within the dependent portion of the gallbladder. Recommend further evaluation with right upper quadrant ultrasound for possible acute cholecystitis. #2. No evidence of bowel obstruction or inflammatory process within the abdomen and pelvis. #3. Multiple calcified uterine fibroids. Yesy Read MD Neck CT 08/31/17 0000 Signed Impressions: Service Date/Time: Thursday, August 31, 2017 09:49 - CONCLUSION: Abnormal enlargement of the left peritonsillar soft tissues with appears to extend over 8 cm segment with a focal central area of decreased attenuation with thin rim of enhancement. This may represent significant tonsillar hypertrophy with central access, however, given the overall size of the lesion there is concern for possible neoplasm. Recommend followup imaging after treatment to evaluate for resolution.. Yesy Read MD Objective Remarks General: No acute distress. HEENT: Significant swelling noted of the left peritonsillar area. Heart: Regular rate and rhythm. No murmur. Lungs: Clear to auscultation bilaterally. No wheezes, rales, or rhonchi. Breathing is nonlabored. Abdomen: Soft, nontender, nondistended. Extremities: No lower extremity edema. Psych: Alert and oriented. Procedures None Urinary Catheter: No Vascular Central Line Catheter: No A/P Problem List: (1) Peritonsillar abscess ICD Code: J36 - Peritonsillar abscess (2) IVDU (intravenous drug user) ICD Code: F19.90 - Other psychoactive substance use, unspecified, uncomplicated (3) Tonsillar abscess ICD Code: J36 - Peritonsillar abscess (4) Methamphetamine abuse ICD Code: F15.10 - Other stimulant abuse, uncomplicated (5) Tobacco abuse ICD Code: Z72.0 - Tobacco use (6) Marijuana abuse ICD Code: F12.10 - Cannabis abuse, uncomplicated Assessment and Plan 1. Peritonsillar abscess versus mass: Symptoms improving. Continue IV antibiotics, Decadron. 2. Enlarged gallbladder on CT: Check gallbladder ultrasound to evaluate for acute cholecystitis. No acute pain in the right upper quadrant. 3. Tylenol, aspirin overuse: Patient took large amounts of Tylenol and aspirin secondary to pain. Denied any suicidal ideation. Acetaminophen level decreased. Salicylate level within normal limits. 4. Tobacco abuse: Nicotine patch. Counseled to quit smoking. 5. Alcohol abuse: CIWA protocol. Counseled. 6. Polysubstance abuse (methamphetamine, cocaine, marijuana): Counseled. 7. GI prophylaxis: Protonix. 8. DVT prophylaxis: SCDs, MITCH leblanc. Discharge Planning Possible discharge home tomorrow if symptoms continue to improve. Tomas Graham MD Sep 01, 2017 09:03
[2017-09-01] MEDS ORDERED: INFLUENZA VIRUS VACCINE (QUADRIVALENT) 0.5 ML SYR IM ONE (10:00)
[2017-09-01 10:10] LABS: AUTOMATED NEUTROPHIL # 11.9 TH/MM3 (1.8-7.7); BASOPHIL % 0.2 % (0.0-2.0); HEMATOCRIT 37.9 % (35.0-46.0); HEMO FLAGS DIFF FINAL; LYMPH % 5.2 % (9.0-44.0); LYMPHOCYTE # 0.7 TH/MM3 (1.0-4.8); MEAN CELL VOLUME 91.1 FL (80.0-100.0); MEAN CORPUSCULAR HEMOGLOBIN 30.6 PG (27.0-34.0); MEAN CORPUSCULAR HGB CONC 33.5 % (32.0-36.0); MONO % 3.2 % (0.0-8.0); NEUT % 91.4 % (16.0-70.0); PLATELET COUNT 152 TH/MM3 (150-450); RED BLOOD COUNT 4.16 MIL/MM3 (4.00-5.30)
[2017-09-01 10:35] LABS: ALKALINE PHOSPHATASE 87 U/L (45-117); ALT (GPT) 25 U/L (10-53); ANION GAP 9 MEQ/L (5-15); AST (GOT) 11 U/L (15-37); BICARBONATE 22.9 MEQ/L (21.0-32.0); BLOOD UREA NITROGEN 10 MG/DL (7-18); CHLORIDE 105 MEQ/L (98-107); FREE T4 1.23 NG/DL (0.76-1.46); GLOMERULAR FILTRATION RATE 102 ML/MIN (>89); MAGNESIUM 1.9 MG/DL (1.5-2.5); POTASSIUM 3.8 MEQ/L (3.5-5.1); SODIUM (NA) 137 MEQ/L (136-145); TOTAL BILIRUBIN ADULT 0.4 MG/DL (0.2-1.0)
[2017-09-01 10:42] LABS: ACETAMINOPHEN LESS THAN 2.0 MCG/ML (10.0-30.0)
--- NOTE | 2017-09-01 16:08 | RADRPT ---
EXAM DATE/TIME: 09/01/2017 15:04 [facility] COMPARISON: No previous studies available for comparison. INDICATIONS : Acute cholecystitis. MEDICAL HISTORY : Renal calculi. Right upper quadrant pain. IV drug abuse. SURGICAL HISTORY : Jaw surgery. ENCOUNTER: Initial ACUITY: 1 month PAIN SCORE: 0/10 LOCATION: Right upper quadrant MEASUREMENTS: LIVER: 20.5 cm length COMMON DUCT: 5 mm RIGHT KIDNEY: 12.9 x 5.4 x 4.9 cm FINDINGS: LIVER: Liver is enlarged with mild increased echogenicity. No significant intrahepatic ductal dilatation. COMMON DUCT: No intraluminal mass or stone visualized. GALLBLADDER: Multiple gallstones are noted in the gallbladder with the largest measuring up to 1.2 cm. Gallbladder wall is in the upper limits of normal in thickness. No significant pericholecystic fluid. No sonogra phic Werner sign. PANCREAS: Largely obscured by bowel gas. RIGHT KIDNEY: No evidence of hydronephrosis, stone, or mass. CONCLUSION: 1. Cholelithiasis without definitive sonographic evidence for acute cholecystitis. HIDA scan may be p erformed to confirm cystic duct patency if there is continued significant clinical concern. 2. Mild hepatomegaly with increased hepatic echogenicity consistent with hepatic steatosis or medical liver disease. Cuauhtemoc Fox MD on September 01, 2017 at 16:03 Board Certified Radiologist. This report was verified electronically.
[2017-09-01] MEDS: SODIUM CHLOR 0.9% 1000 ML INJ 1,000 ML IV SCH ×2 (16:11→20:05)
[2017-09-01 17:13] LABS: HEMOGLOBIN A1b 1.7 %; HEMOGLOBIN Ao 83.4 %; HEMOGLOBIN LA1C 3.4 %; HEMOGLOBIN P3 4.4 %
--- NOTE | 2017-09-01 19:31 | EKG ---
Date Performed: 08/31/2017 Time Performed: 20:06:21 PTAGE: 52 years EKG: Sinus rhythm NORMAL ECG NO PREVIOUS TRACING DOCTOR: Ronal Campos Interpretating Date/Time 09/01/2017 19:30:11
[2017-09-02] MEDS: DEXAMETHASONE SOD PHOS 4 MG/ML VIAL IV PUSH SCH ×2 (00:24→05:14)
[2017-09-02 00:25] VITALS: BP 121/71; PULSE 87; RESP 17; TEMP 96.8; O2SAT 95
[2017-09-02] MEDS: cefTRIAXone INJ 1,000 MG in SODIUM CHLORIDE 0.9% INJ 100 ML IV SCH (00:25)
[2017-09-02] MEDS: CLINDAMYCIN INJ 900 MG in SODIUM CHLORIDE 0.9% INJ 100 ML IV SCH ×2 (01:45→09:31)
[2017-09-02 04:30] VITALS: BP 139/86; PULSE 47; RESP 17; TEMP 96.7; O2SAT 97
[2017-09-02] MEDS: SODIUM CHLOR 0.9% 1000 ML INJ 1,000 ML IV SCH (05:14)
[2017-09-02 08:00] VITALS: BP 125/75; PULSE 53; RESP 16; TEMP 97.7; O2SAT 97
[2017-09-02 08:38] VITALS: PULSE 45
[2017-09-02] MEDS ORDERED: PRED10PA PO (08:45)
[2017-09-02] MEDS ORDERED: CLIN1CAP6 PO (08:45)
[2017-09-02] MEDS ORDERED: LACTPOW68 PO (08:45)
--- NOTE | 2017-09-02 09:00 | HHI.PR ---
Subjective Remarks Follow up peritonsillar swelling. Patient had some mild pain with swallowing last night, but none so far this morning. Denies abdominal pain, chest pain, dyspnea, nausea, vomiting, lightheadedness, dizziness. Objective Vitals Vital Signs Date Time Temp Pulse Resp B/P (MAP) Pulse Ox O2 Delivery O2 Flow Rate FiO2 09/02/17 04:30 96.7 47 17 139/86 (103) 97 09/02/17 00:25 96.8 87 17 121/71 (88) 95 09/01/17 20:30 96.8 57 17 127/75 (92) 91 09/01/17 20:09 80 09/01/17 16:00 97.0 60 16 120/75 (90) 95 09/01/17 15:06 53 09/01/17 12:53 65 09/01/17 12:00 97.8 65 20 117/74 (88) 96 09/01/17 09:46 96 I/O 09/01/17 09/01/17 09/01/17 09/02/17 09/02/17 09/02/17 07:00 15:00 23:00 07:00 15:00 23:00 Intake Total 1860 ml 480 ml Balance 1860 ml 480 ml Intake Oral 0 ml 480 ml IV Total 1860 ml # Voids 3 3 2 # Bowel Movements 0 Result Diagram: 09/01/17 0945 09/01/17 0945 Imaging Last Impressions Gall Bladder Ultrasound 09/01/17 0000 Signed Impressions: Service Date/Time: Friday, September 01, 2017 15:04 - CONCLUSION: 1. Cholelithiasis without definitive sonographic evidence for acute cholecystitis. HIDA scan may be performed to confirm cystic duct patency if there is continued significant clinical concern. 2. Mild hepatomegaly with increased hepatic echogenicity consistent with hepatic steatosis or medical liver disease. Cuauhtemoc Fox MD Chest X-Ray 08/31/17 1237 Signed Impressions: Service Date/Time: Thursday, August 31, 2017 13:01 - CONCLUSION: Normal examination. Neal Snyder MD Abdomen/Pelvis CT 08/31/17 0826 Signed Impressions: Service Date/Time: Thursday, August 31, 2017 08:44 - CONCLUSION: #1. The gallbladder is greatly distended and there is layering high density material identified within the dependent portion of the gallbladder. Recommend further evaluation with right upper quadrant ultrasound for possible acute cholecystitis. #2. No evidence of bowel obstruction or inflammatory process within the abdomen and pelvis. #3. Multiple calcified uterine fibroids. Yesy Read MD Neck CT 08/31/17 0000 Signed Impressions: Service Date/Time: Thursday, August 31, 2017 09:49 - CONCLUSION: Abnormal enlargement of the left peritonsillar soft tissues with appears to extend over 8 cm segment with a focal central area of decreased attenuation with thin rim of enhancement. This may represent significant tonsillar hypertrophy with central access, however, given the overall size of the lesion there is concern for possible neoplasm. Recommend followup imaging after treatment to evaluate for resolution.. Yesy Read MD Objective Remarks General: No acute distress. HEENT: Swelling noted of the left peritonsillar area is improving. Heart: Regular rate and rhythm. No murmur. Lungs: Clear to auscultation bilaterally. No wheezes, rales, or rhonchi. Breathing is nonlabored. Abdomen: Soft, nontender, nondistended. Extremities: No lower extremity edema. Psych: Alert and oriented. Procedures None Urinary Catheter: No Vascular Central Line Catheter: No A/P Problem List: (1) Peritonsillar abscess ICD Code: J36 - Peritonsillar abscess (2) IVDU (intravenous drug user) ICD Code: F19.90 - Other psychoactive substance use, unspecified, uncomplicated (3) Tonsillar abscess ICD Code: J36 - Peritonsillar abscess (4) Methamphetamine abuse ICD Code: F15.10 - Other stimulant abuse, uncomplicated (5) Tobacco abuse ICD Code: Z72.0 - Tobacco use (6) Marijuana abuse ICD Code: F12.10 - Cannabis abuse, uncomplicated Assessment and Plan 1. Peritonsillar abscess versus mass: Symptoms improving. Continue antibiotics, steroids -- convert to oral at discharge. Evaluated by ENT. No documentation is available, but nursing spoke with ENT and patient has been cleared for discharge home and is advised to follow up as outpatient to discuss tonsillectomy. 2. Enlarged gallbladder on CT: Gallbladder ultrasound shows no evidence of acute cholecystitis. No acute pain in the right upper quadrant. Patient advised to follow up with PCP and return if she develops symptoms. 3. Tylenol, aspirin overuse: Patient took large amounts of Tylenol and aspirin secondary to pain. Denied any suicidal ideation. Acetaminophen level decreased. Salicylate level within normal limits. 4. Tobacco abuse: Nicotine patch. Counseled to quit smoking. 5. Alcohol abuse: [facility] protocol. Counseled. 6. Polysubstance abuse (methamphetamine, cocaine, marijuana): Counseled. 7. GI prophylaxis: Protonix. 8. DVT prophylaxis: [facility] Johnson. 9. Bradycardia: Patient is asymptomatic. Heart rate drops to the 30s, mostly with sleep. Consult cardiology. Discharge Planning Discharge home if cleared by cardiology. Tomas Graham MD Sep 02, 2017 09:00
[2017-09-02] MEDS: MULTIVITAMIN TAB PO SCH (09:33)
[2017-09-02] MEDS: PANTOPRAZOLE SOD 40 MG DELAYED RELEASE TAB PO SCH (09:33)
[2017-09-02] MEDS: THIAMINE HCL 100 MG TAB PO SCH (09:33)
[2017-09-02] MEDS: FOLIC ACID 1 MG TAB PO SCH (09:33)
[2017-09-02] MEDS: DOCUSATE SODIUM 50 MG/SENNA 8.6 MG TAB PO SCH (09:34)
[2017-09-02] MEDS: NICOTINE 14 MG/24 HR PATCH T-DERMAL SCH (09:34)
[2017-09-02] MEDS: REMOVE OLD PATCH T-DERMAL SCH (09:35)
[2017-09-02] MEDS: SODIUM CHLORIDE 0.9% FLUSH 10 ML FLUSH IV FLUSH SCH (09:38)
[2017-09-02 12:00] VITALS: BP 132/76; PULSE 51; RESP 18; TEMP 97.5; O2SAT 98
== END 2017-09-02 14:59 | disposition left against medical advice (07) | DRG 153 ==
LOC: NEPE 08:14 → NEDA 12:01 → HOCB 13:18
PROVIDERS: ADMIT Family Medicine; ATTEND Family Medicine
DX: J36 Peritonsillar abscess (principal); R00.1 Bradycardia, unspecified; F14.10 Cocaine abuse, uncomplicated; F15.10 Other stimulant abuse, uncomplicated; F12.10 Cannabis abuse, uncomplicated; T39.1X1A Poisoning by 4-Aminophenol derivatives, accidental (unintentional), initial encounter; Y92.9 Unspecified place or not applicable; R10.13 Epigastric pain; Z85.858 Personal history of malignant neoplasm of other endocrine glands; Z92.3 Personal history of irradiation; F10.10 Alcohol abuse, uncomplicated; Z91.19 Patient's noncompliance with other medical treatment and regimen; K82.8 Other specified diseases of gallbladder; Z23 Encounter for immunization
CPT/HCPCS: 70491; 71010; 74176; 76705; 80053; 80307; 81001; 82948; 83036; 83690; 83735; 84100; 84439; 84443; 85025; 85610; 85730; 87040; 90686; 93005; 96365; J0696; J1100; J7030; Q2038; Q9967